=== PATIENT | female | born 1995 | race Caucasian/White ===

== ENCOUNTER 2019-09-06 00:14 | Emergency (ER) | payer SELFPAY ==
[~2019-09-06] VITALS: Ht 162.6 cm; Wt 61.4 kg
[2019-09-06 00:28] VITALS: BP 123/58; PULSE 75; TEMP 97.3
[2019-09-06 01:01] LABS: COLLECTION METHOD CLEAN CATCH; URINE APPEARANCE Cloudy; URINE COLOR Red
[2019-09-06 01:02] LABS: PH 5 (5-8); URINE BILIRUBIN Negative (NEGATIVE); URINE BLOOD 3+ (NEGATIVE); URINE GLUCOSE Negative (NEGATIVE); URINE KETONE Negative (NEGATIVE); URINE LEUKOCYTE ESTERASE 2+ (NEGATIVE); URINE NITRATE Negative (NEGATIVE); URINE PROTEIN(semi-quant) 2+ (NEGATIVE); URINE UROBILINOGEN Negative (NEGATIVE)
[2019-09-06 01:07] LABS: SQUAMOUS EPITHELIAL 0-2 /hpf; URINE BACTERIA Rare /hpf; URINE RBC >50 /hpf
[2019-09-06] MEDS ORDERED: MACROBID 1100 MG/CAP PO (01:11)
== END 2019-09-06 01:33 | disposition home or self-care (01) ==
LOC: COL.ER 00:14
PROVIDERS: Physician Assistant
DX: N30.01 Acute cystitis with hematuria (principal); Z87.440 Personal history of urinary (tract) infections

== ENCOUNTER 2020-05-13 22:39 | Emergency (ER) | payer OTHER ==
[~2020-05-13] VITALS: Ht 162.6 cm; Wt 63.6 kg
[~2020-05-13 22:39] MED LIST: MACROBID 1100 MG/CAP PO
[2020-05-13 23:28] LABS: BASO % 0.3 % (0.0-2.0); EOS # 0.2 (0.0-0.7); EOS % 1.8 % (0-4.0); GRAN # 5.3 (1.4-6.5); GRAN % 56.4 % (42.2-75.2); HEMATOCRIT 37.7 % (37.0-47.0); HEMOGLOBIN 12.5 g/dl (12.5-16.0); LYMPH # 2.8 (1.2-3.4); LYMPH % 29.8 % (20.0-51.0); MEAN CELL VOLUME 86 fl (80.0-100.0); MEAN CORPUSCULAR HEMOGLOBIN 28 pg (27.0-31.0); MEAN CORPUSCULAR HGB CONC 33 g/dl (33.0-37.0); MEAN PLATELET VOLUME 10.3 fl (7.4-10.4); MONO # 1.1 (0.1-0.6); MONO % 11.4 % (1.7-9.3); PLATELET COUNT 248 K/mm3 (130-400)
[2020-05-13 23:44] LABS: ALANINE AMINOTRANSFERASE 19 U/L (4-34); ALBUMIN 4.5 gm/dL (3.5-5.0); ALKALINE PHOSPHATASE 92 U/L (50-136); ANION GAP 10 mmol/L (7-16); AST,SGOT 34 U/L (15-37); BILIRUBIN,TOTAL 0.8 mg/dL (0.0-1.0); BLOOD UREA NITROGEN 24 mg/dL (7-17); CALCIUM 9.1 mg/dL (8.4-10.2); CARBON DIOXIDE 27 mmol/L (22-30); CHLORIDE 103 mmol/L (98-107); CREATININE, serum 0.74 (0.52-1.25); GLUCOSE 126 mg/dL (74-106); SODIUM 140 mmol/L (137-145); TOTAL PROTEIN 7.2 gm/dL (6.4-8.2)
[2020-05-13 23:45] LABS: C-REACTIVE PROTEIN < 0.5 mg/dL (0.0-0.9); COLLECTION METHOD CLEAN CATCH
[2020-05-13 23:51] LABS: POTASSIUM 3.5 mmol/L (3.4-5.0)
[2020-05-14 00:01] LABS: MUCOUS Present /lpf; PH 6 (5-8); URINE APPEARANCE Cloudy; URINE BACTERIA None Seen /hpf; URINE BILIRUBIN Negative (NEGATIVE); URINE BLOOD 3+ (NEGATIVE); URINE COLOR Yellow; URINE GLUCOSE Negative (NEGATIVE); URINE KETONE Negative (NEGATIVE); URINE LEUKOCYTE ESTERASE 1+ (NEGATIVE); URINE NITRATE Negative (NEGATIVE); URINE PROTEIN(semi-quant) 2+ (NEGATIVE); URINE RBC >50 /hpf; URINE UROBILINOGEN Negative (NEGATIVE)
[2020-05-14] MEDS ORDERED: ZOFRAN ODT4 MG PO (01:24)
[2020-05-14] MEDS ORDERED: NORCO 325 MG-51 TAB PO (01:24)
[2020-05-14] MEDS ORDERED: CEFTIN500 MG PO (01:24)
[2020-05-14 01:55] VITALS: BP 112/73; PULSE 74; TEMP 98.3
== END 2020-05-14 01:58 | disposition home or self-care (01) ==
LOC: COL.ER 22:39
PROVIDERS: Family Medicine; Nurse Practitioner
DX: N20.1 Calculus of ureter (principal)
CPT/HCPCS: J2270; J2405; J7030; Q9967

== ENCOUNTER 2022-01-31 11:41 | Emergency (ER) | payer BC ==
[~2022-01-31] VITALS: Ht 162.6 cm; Wt 76.4 kg
[~2022-01-31 11:41] MED LIST changes: +CEFTIN500 MG PO; +NORCO 325 MG-51 TAB PO; +ZOFRAN ODT4 MG PO
[2022-01-31 11:49] VITALS: TEMP 97.8
[2022-01-31 12:17] LABS: COLLECTION METHOD CLEAN CATCH
[2022-01-31 12:21] LABS: BASO % 0.2 % (0.0-2.0); EOS % 0.2 % (0.0-4.0); GRAN # 9.1 K/mm3 (1.4-6.5); HEMOGLOBIN 11.2 g/dl (12.5-16.0); LYMPH # 1.3 K/mm3 (1.2-3.4); LYMPH % 11.4 % (20.0-51.0); MEAN CELL VOLUME 86 fl (80.0-100.0); MEAN CORPUSCULAR HEMOGLOBIN 29 pg (27-31); MEAN CORPUSCULAR HGB CONC 34 g/dl (33.0-37.0); MEAN PLATELET VOLUME 10.6 fl (7.4-10.4); MONO # 1.1 K/mm3 (0.1-0.6); MONO % 9.5 % (1.7-9.3); PLATELET COUNT 236 K/mm3 (130-400); RED BLOOD COUNT 3.87 M/mm3 (4.10-5.30); REDCELL DISTRIBUTION WIDTH-CV 13.2 % (11.5-14.5)
[2022-01-31 12:27] LABS: HEMATOCRIT 33.1 % (37.0-47.0)
[2022-01-31 12:46] LABS: ALBUMIN 2.8 gm/dL (3.5-5.0); BILIRUBIN,TOTAL 1.2 mg/dL (0.2-1.2); CREATININE, serum 0.6 mg/dL (0.57-1.11); POTASSIUM 3.5 mmol/L (3.5-4.5); TOTAL PROTEIN 6.5 gm/dL (6.2-8.1)
[2022-01-31 12:51] LABS: SQUAMOUS EPITHELIAL 0-2 /hpf (0-10); URINE BACTERIA Rare /hpf (NONE SEEN); URINE RBC 0-2 /hpf (0-2)
[2022-01-31 12:52] LABS: PH 7 (5-8); URINE APPEARANCE Clear (CLEAR/HAZY); URINE BLOOD Negative (NEGATIVE); URINE COLOR Yellow (YELLOW); URINE GLUCOSE Negative (NEGATIVE); URINE KETONE Negative (NEGATIVE); URINE NITRATE Negative (NEGATIVE); URINE PROTEIN(semi-quant) Negative (NEGATIVE); URINE UROBILINOGEN Negative (NEGATIVE)
--- NOTE | 2022-01-31 13:45 | NUR ---
Patient here in e.r. heart tones at 89 with accelerations noted.
[2022-01-31 14:35] VITALS: BP 112/61; PULSE 102
== END 2022-01-31 14:35 | disposition home or self-care (01) ==
LOC: COL.ER 11:41
PROVIDERS: Nurse Practitioner
DX: O99.413 Diseases of the circulatory system complicating pregnancy, third trimester (principal); O99.513 Diseases of the respiratory system complicating pregnancy, third trimester; R06.00 Dyspnea, unspecified; Z3A.34 34 weeks gestation of pregnancy; Z86.16 Personal history of COVID-19; Z20.822 Contact with and (suspected) exposure to COVID-19
CPT/HCPCS: J7030

== ENCOUNTER → 2022-11-03 | Outpatient (CLI) | payer BC | LOC: COL.RAD 10-27 07:30 | DX: R59.0 Localized enlarged lymph nodes (principal) ==